=== PATIENT | male | born 1940 | race Caucasian/White ===

== ENCOUNTER 2016-12-27 05:24 | Inpatient (IN) | payer MEDICARE, MEDICAID ==
[~2016-12-27] VITALS: Ht 177.8 cm; Wt 66.0 kg
[2016-12-27] VITALS (13 sets, daily range): BP systolic 34–163; BP diastolic 20–108; PULSE 53–137; TEMP 97–97.9
[~2016-12-27 05:24] MED LIST: ATIVAN 0.50.5 MG/TAB PO; DOXYCYCLINE 10100 MG PO; NO HOME MEDICATIONS; NORCO 325 MG-51 TAB PO; PERCOCET 325 MG1 TA2 PO; RT ADVAIR HFA 1112 G IH; TENORMIN 2525 MG/TAB PO; TYLENOL 325MG325 MG PO; TYLENOL W/COD1 UDTAB PO; [UNRECOGNIZED DRUG - REMARK]
[2016-12-27] MEDS ORDERED: PLAVIX 75MG TAB75 MG PO (08:08)
[2016-12-27] MEDS ORDERED: INDOCIN50 MG PO (08:10)
[2016-12-27] MEDS ORDERED: TOPROL XL 50MG50 MG PO (08:11)
[2016-12-27] MEDS ORDERED: ZYLOPRIM 100MG100 MG PO (08:12)
[2016-12-27] MEDS ORDERED: ZESTRIL 10MG10 MG PO (08:13)
[2016-12-27] MEDS ORDERED: SENOKOT8.6 MG PO (08:13)
[2016-12-27] MEDS ORDERED: ASPIRIN 81M81 MG/TA2 PO (08:13)
[2016-12-27] MEDS ORDERED: DRAMAMINE 50MG50 MG PO (08:14)
[2016-12-27 08:23] LABS: MEAN CELL VOLUME 97 fl (80.0-100.0); MEAN CORPUSCULAR HGB CONC 33 g/dl (33.0-37.0); PLATELET COUNT 218 K/mm3 (130-400); RED BLOOD COUNT 3.48 M/mm3 (4.20-5.60); REDCELL DISTRIBUTION WIDTH-CV 15.4 % (11.5-14.5); WHITE BLOOD COUNT 8.8 K/mm3 (4.8-10.8)
[2016-12-27 08:26] LABS: HEMATOCRIT 33.9 % (42.0-52.0); HEMOGLOBIN 11.2 g/dl (13.5-18.0); MEAN CORPUSCULAR HEMOGLOBIN 32 pg (27.0-31.0)
[2016-12-27 08:29] LABS: PROTHROMBIN TIME 10.8 SECONDS (9.7-12.8)
== END 2016-12-27 10:10 | disposition short-term general hospital (02) | DRG 157 ==
LOC: ICU 05:24
PROVIDERS: Internal Medicine Cardiovascular Disease
PROC: 0BH17EZ Insertion of Endotracheal Airway into Trachea, Via Natural or Artificial Opening (ICD-10-PCS; principal; 2016-12-27)
PROC: 02HV33Z Insertion of Infusion Device into Superior Vena Cava, Percutaneous Approach (ICD-10-PCS; 2016-12-27)
PROC: 5A1935Z Respiratory Ventilation, Less than 24 Consecutive Hours (ICD-10-PCS; 2016-12-27)
DX: K13.79 Other lesions of oral mucosa (principal); R57.8 Other shock; D62 Acute posthemorrhagic anemia; I10 Essential (primary) hypertension; F17.210 Nicotine dependence, cigarettes, uncomplicated; I95.1 Orthostatic hypotension; R00.1 Bradycardia, unspecified; C04.9 Malignant neoplasm of floor of mouth, unspecified; F10.10 Alcohol abuse, uncomplicated; Y90.0 Blood alcohol level of less than 20 mg/100 ml
CPT/HCPCS: 99223-AI; C1751; J0171; J0330; J0461; J2060; J2250; J7030; J7060

== ENCOUNTER 2017-01-31 16:33 | Emergency (ER) | payer MEDICARE, MEDICAID ==
[~2017-01-31 16:33] MED LIST changes: +ASPIRIN 81M81 MG/TA2 PO; +DRAMAMINE 50MG50 MG PO; +INDOCIN50 MG PO; +PLAVIX 75MG TAB75 MG PO; +SENOKOT8.6 MG PO; +TOPROL XL 50MG50 MG PO; +ZESTRIL 10MG10 MG PO; +ZYLOPRIM 100MG100 MG PO
[2017-01-31 16:35] VITALS: TEMP 97
[2017-01-31 18:20] VITALS: BP 132/60; PULSE 73
== END 2017-01-31 18:21 | disposition home or self-care (01) ==
LOC: COL.ER 16:33
DX: Z43.0 Encounter for attention to tracheostomy (principal); Z90.49 Acquired absence of other specified parts of digestive tract; Z85.810 Personal history of malignant neoplasm of tongue; I48.91 Unspecified atrial fibrillation; F17.200 Nicotine dependence, unspecified, uncomplicated; R56.9 Unspecified convulsions; Z79.02 Long term (current) use of antithrombotics/antiplatelets

== ENCOUNTER 2017-02-23 21:04 | Emergency (ER) | payer MEDICARE, MEDICAID ==
[~2017-02-23] VITALS: Ht 180.3 cm; Wt 63.6 kg
[2017-02-23 21:04] VITALS: TEMP 97.2
[~2017-02-23 21:04] MED LIST changes: +AMIODARONE PEG; +ASPIRIN 81M81 MG/TA2 PEG; +ATIVAN 0.50.5 MG/TAB PEG; +CLEOCIN 751500 MG/10 PEG; +CORDARONE200 MG/TAB PEG; +DULCOLAX S10 MG/SUPP RC; +FOLIC ACID 11 MG/TA1 PEG; +HEPARIN 50500 U/5 ML IV; +IPRATROPIUM BROM3 M1 IH; +LEVASOLN PEG; +LEXAPRO 10MG10 MG PEG; +LIPITOR 40MG TA40 MG PEG; +MAXIPIME1 GM IV; +MELAT3MGTAB PEG; +MUCINEX 60600 MG/TA1 PEG; +NATURE'S BLEND100 M2 PEG; +NS INT FLUSH 1010 ML IV; +OXYCODONE H5 MG/5 ML PEG; +PEPCID 20MG TAB20 MG PEG; +PEPCID 20MG TAB20 MG PO; +PERIDEX (CHLOR480 ML MM; +PULMICORT R1 MG/2 ML IH; +ROCEPHIN VIA1 G/VIAL IV; +RT ALBUTER2.5 MG/0.5 IH; +SENOKOT8.6 MG PEG; -SENOKOT8.6 MG PO; +TYLEINFANT PEG; +VANCOCIN HCL1 GM IV
[2017-02-23 22:20] VITALS: BP 144/72; PULSE 81
== END 2017-02-23 22:20 | disposition home or self-care (01) ==
LOC: COL.ER 21:04
DX: J95.03 Malfunction of tracheostomy stoma (principal); Z79.82 Long term (current) use of aspirin

== ENCOUNTER → 2017-03-12 | Outpatient (REF) ==
[~2017-03-12] MED LIST changes: +LASIX 20MG TABL20 MG PO
[2017-03-12 14:52] LABS: BASO % 0.4 % (0.0-2.0); EOS # 0.1 (0.0-0.7); EOS % 0.7 % (0-4.0); GRAN # 6.6 (1.4-6.5); GRAN % 68.2 % (42.2-75.2); LYMPH # 1.8 (1.2-3.4); LYMPH % 18.2 % (20.0-51.0); MEAN CELL VOLUME 93 fl (80.0-100.0); MEAN CORPUSCULAR HGB CONC 32 g/dl (33.0-37.0); MEAN PLATELET VOLUME 10.1 fl (7.4-10.4); MONO # 1.2 (0.1-0.6); MONO % 12.2 % (1.7-9.3); PLATELET COUNT 400 K/mm3 (130-400); RED BLOOD COUNT 3.07 M/mm3 (4.20-5.60); WHITE BLOOD COUNT 9.6 K/mm3 (4.8-10.8)
[2017-03-12 14:57] LABS: ADJUSTED CALCIUM 9.5 mg/dL (8.4-10.2); ALBUMIN 2.8 gm/dL (3.5-5.0); BILIRUBIN,TOTAL 0.6 mg/dL (0.0-1.0); CALCIUM 8.5 mg/dL (8.4-10.2); CREATININE, serum 0.69 mg/dL (0.66-1.25); POTASSIUM 3.8 mmol/L (3.4-5.0); TOTAL PROTEIN 6.1 gm/dL (6.4-8.2)
[2017-03-12 15:34] LABS: HEMATOCRIT 28.4 % (42.0-52.0); HEMOGLOBIN 9.1 g/dl (13.5-18.0); MEAN CORPUSCULAR HEMOGLOBIN 30 pg (27.0-31.0)
== END ==
LOC: ZLAB.STJ 14:35
PROVIDERS: Radiology Radiation Oncology
DX: Z01.89 Encounter for other specified special examinations (principal)

== ENCOUNTER 2017-03-14 11:32 | Inpatient (IN) | payer MEDICARE, MEDICAID ==
[~2017-03-14] VITALS: Ht 182.9 cm; Wt 56.6 kg
[2017-03-14] VITALS (9 sets, daily range): BP systolic 117–148; BP diastolic 60–103; PULSE 59–112; TEMP 97.7–98.3
[~2017-03-14 11:32] MED LIST changes: -LASIX 20MG TABL20 MG PO
[2017-03-14 12:21] LABS: BASO # 0.1 (0.0-0.2); BASO % 0.3 % (0.0-2.0); GRAN # 15.1 (1.4-6.5); GRAN % 86.2 % (42.2-75.2); LYMPH # 1.2 (1.2-3.4); MEAN CELL VOLUME 90 fl (80.0-100.0); MEAN CORPUSCULAR HGB CONC 30 g/dl (33.0-37.0); MEAN PLATELET VOLUME 9.9 fl (7.4-10.4); MONO # 1.1 (0.1-0.6); MONO % 6.2 % (1.7-9.3); RED BLOOD COUNT 3.21 M/mm3 (4.20-5.60); WHITE BLOOD COUNT 17.5 K/mm3 (4.8-10.8)
[2017-03-14 12:28] LABS: HEMOGLOBIN 8.8 g/dl (13.5-18.0); MEAN CORPUSCULAR HEMOGLOBIN 27 pg (27.0-31.0); PLATELET COUNT 298 K/mm3 (130-400)
[2017-03-14] MEDS ORDERED: LASIX 20MG TABL20 MG PO (12:28)
[2017-03-14 12:29] LABS: ADJUSTED CALCIUM 9.3 mg/dL (8.4-10.2); ALANINE AMINOTRANSFERASE 40 U/L (21-72); ALBUMIN 2.9 gm/dL (3.5-5.0); ALKALINE PHOSPHATASE 95 U/L (50-136); ANION GAP 7 mmol/L (7-16); BILIRUBIN,TOTAL 0.8 mg/dL (0.0-1.0); BLOOD UREA NITROGEN 25 mg/dL (9-20); CALCIUM 8.4 mg/dL (8.4-10.2); CARBON DIOXIDE 34 mmol/L (22-30); CHLORIDE 93 mmol/L (98-107); CREATININE, serum 0.83 mg/dL (0.66-1.25); GLUCOSE 145 mg/dL (74-106); POTASSIUM 3.6 mmol/L (3.4-5.0); SODIUM 134 mmol/L (137-145); TOTAL PROTEIN 6.2 gm/dL (6.4-8.2)
[2017-03-14 12:42] LABS: TROPONIN-I < 0.012 ng/mL (0.000-0.034)
[2017-03-15 01:30] VITALS: BP 130/83; PULSE 103
[2017-03-15 02:51] VITALS: BP 131/68; PULSE 102; TEMP 97.6
[2017-03-15 07:17] LABS: MEAN CELL VOLUME 89 fl (80.0-100.0); MEAN CORPUSCULAR HGB CONC 31 g/dl (33.0-37.0); MEAN PLATELET VOLUME 10.3 fl (7.4-10.4); PLATELET COUNT 240 K/mm3 (130-400); RED BLOOD COUNT 2.81 M/mm3 (4.20-5.60); WHITE BLOOD COUNT 10.5 K/mm3 (4.8-10.8)
[2017-03-15 07:25] LABS: ADD PATHOLOGY DIFF REVIEW NO; HEMATOCRIT 24.9 % (42.0-52.0); HEMOGLOBIN 7.8 g/dl (13.5-18.0); MEAN CORPUSCULAR HEMOGLOBIN 28 pg (27.0-31.0)
[2017-03-15 07:45] VITALS: BP 125/88; PULSE 110; TEMP 97.5
[2017-03-15 07:54] LABS: CALCIUM 7.8 mg/dL (8.4-10.2); CREATININE, serum 0.62 mg/dL (0.66-1.25)
[2017-03-15 09:37] LABS: BAND 35 % (0-10); LYMPHOCYTE 10 % (20.0-51.0); NEUTROPHILS 52 % (42.0-75.2); PLATELET ESTIMATE NORMAL (NORMAL); TOTAL CELLS COUNTED 100
[2017-03-15 12:43] LABS: COLLECTION METHOD CLEAN CATCH
[2017-03-15 12:57] LABS: MUCOUS Present /lpf; PH 6 (5-8); SQUAMOUS EPITHELIAL 0-2 /hpf; URINE APPEARANCE Hazy; URINE BACTERIA Rare /hpf; URINE BILIRUBIN Negative (NEGATIVE); URINE BLOOD Negative (NEGATIVE); URINE COLOR Yellow; URINE GLUCOSE Negative (NEGATIVE); URINE KETONE Trace (NEGATIVE); URINE LEUKOCYTE ESTERASE Negative (NEGATIVE); URINE PROTEIN(semi-quant) 1+ (NEGATIVE); URINE UROBILINOGEN Negative (NEGATIVE)
[2017-03-15 13:28] VITALS: BP 131/69; PULSE 89; TEMP 98.7
[2017-03-15 14:10] LABS: ARTERIAL BLD GAS O2 SATURATION 97.7 % (92-100); ARTERIAL BLOOD GAS BASE EXCESS 5.1 (-2-2); ARTERIAL BLOOD GAS HCO3 29.6 meq/L (22-26); ARTERIAL BLOOD GAS PO2 109.7 mmHg (80-100); ARTERIAL BLOOD GAS pH 7.45 (7.35-7.45); OXYHEMOGLOBIN 96.7 %
[2017-03-15 14:11] LABS: ATS? YES
[2017-03-15 15:49] VITALS: BP 136/79; PULSE 100; TEMP 98.7
[2017-03-15 22:12] VITALS: BP 144/67; PULSE 75; TEMP 97.5
[2017-03-16] VITALS (7 sets, daily range): BP systolic 127–171; BP diastolic 68–82; PULSE 64–110; TEMP 97.5–98.5
[2017-03-16 09:27] LABS: MEAN CELL VOLUME 89 fl (80.0-100.0); MEAN CORPUSCULAR HGB CONC 31 g/dl (33.0-37.0); MEAN PLATELET VOLUME 10.8 fl (7.4-10.4); PLATELET COUNT 248 K/mm3 (130-400); WHITE BLOOD COUNT 7.8 K/mm3 (4.8-10.8)
[2017-03-16 09:32] LABS: ADD PATHOLOGY DIFF REVIEW NO; HEMATOCRIT 24.9 % (42.0-52.0); HEMOGLOBIN 7.8 g/dl (13.5-18.0); MEAN CORPUSCULAR HEMOGLOBIN 28 pg (27.0-31.0)
[2017-03-16 09:36] LABS: CALCIUM 7.9 mg/dL (8.4-10.2); CREATININE, serum 0.6 mg/dL (0.66-1.25)
[2017-03-16 10:30] LABS: BAND 33 % (0-10); EOSINOPHIL 1 % (0-4); LYMPHOCYTE 11 % (20.0-51.0); NEUTROPHILS 53 % (42.0-75.2); PLATELET ESTIMATE NORMAL (NORMAL); TOTAL CELLS COUNTED 100
[2017-03-16 13:57] LABS: ARTERIAL BLD GAS O2 SATURATION 96.3 % (92-100); ARTERIAL BLD GAS TCO2 CT 32.2; ARTERIAL BLOOD GAS BASE EXCESS 6.3 (-2-2); ARTERIAL BLOOD GAS HCO3 30.8 meq/L (22-26); ARTERIAL BLOOD GAS PHT 7.46 C (7.35-7.45); ARTERIAL BLOOD GAS PO2 87.4 mmHg (80-100); ARTERIAL BLOOD GAS PO2T 87.4 (80-100); ARTERIAL BLOOD GAS pH 7.46 (7.35-7.45); OXYHEMOGLOBIN 95.5 %
[2017-03-16 13:58] LABS: ATS? YES
[2017-03-17 03:48] VITALS: BP 173/75; PULSE 67; TEMP 98.5
[2017-03-17 06:23] LABS: MEAN CELL VOLUME 90 fl (80.0-100.0); MEAN CORPUSCULAR HGB CONC 31 g/dl (33.0-37.0); MEAN PLATELET VOLUME 10.3 fl (7.4-10.4); PLATELET COUNT 235 K/mm3 (130-400); WHITE BLOOD COUNT 7.3 K/mm3 (4.8-10.8)
[2017-03-17 06:26] LABS: HEMATOCRIT 26.2 % (42.0-52.0); MEAN CORPUSCULAR HEMOGLOBIN 28 pg (27.0-31.0)
[2017-03-17 06:27] LABS: ADD PATHOLOGY DIFF REVIEW NO
[2017-03-17 07:07] LABS: BAND 14 % (0-10); LYMPHOCYTE 20 % (20.0-51.0); METAMYELOCYTE 1 % (0-0); NEUTROPHILS 60 % (42.0-75.2); TOTAL CELLS COUNTED 100
[2017-03-17 07:08] LABS: ANISOCYTOSIS 1+; PLATELET ESTIMATE NORMAL (NORMAL)
[2017-03-17 07:09] LABS: HYPOCHROMIA 2+
[2017-03-17 08:57] VITALS: BP 163/73; PULSE 67; TEMP 98.1
[2017-03-17 12:08] VITALS: BP 148/61; PULSE 75; TEMP 97.8
[2017-03-17 16:09] VITALS: BP 139/61; PULSE 70; TEMP 98.2
[2017-03-17 19:17] VITALS: BP 149/67; PULSE 64; TEMP 98.8
[2017-03-17 23:35] VITALS: BP 148/60; PULSE 73; TEMP 98
[2017-03-18 02:41] LABS: BASO % 0.3 % (0.0-2.0); EOS # 0.2 (0.0-0.7); EOS % 1.5 % (0-4.0); GRAN # 6.9 (1.4-6.5); GRAN % 68.9 % (42.2-75.2); LYMPH # 1.7 (1.2-3.4); LYMPH % 16.9 % (20.0-51.0); MEAN CELL VOLUME 89 fl (80.0-100.0); MEAN CORPUSCULAR HGB CONC 30 g/dl (33.0-37.0); MEAN PLATELET VOLUME 9.8 fl (7.4-10.4); MONO # 1.2 (0.1-0.6); PLATELET COUNT 238 K/mm3 (130-400); RED BLOOD COUNT 3.11 M/mm3 (4.20-5.60)
[2017-03-18 02:43] LABS: HEMATOCRIT 27.8 % (42.0-52.0); HEMOGLOBIN 8.3 g/dl (13.5-18.0); MEAN CORPUSCULAR HEMOGLOBIN 27 pg (27.0-31.0)
[2017-03-18 02:51] LABS: CALCIUM 7.9 mg/dL (8.4-10.2); CREATININE, serum 0.55 mg/dL (0.66-1.25); MAGNESIUM 1.7 mg/dL (1.6-2.3); POTASSIUM 3.5 mmol/L (3.4-5.0)
[2017-03-18 05:03] VITALS: BP 148/62; PULSE 67; TEMP 98.4
[2017-03-18 08:59] VITALS: BP 119/72; PULSE 100; TEMP 98.6
[2017-03-18 12:24] VITALS: BP 134/57; PULSE 73; TEMP 97.7
[2017-03-18 16:31] VITALS: BP 177/95; PULSE 68; TEMP 98.9
[2017-03-18 20:10] VITALS: BP 133/57; PULSE 76; TEMP 100.2
[2017-03-19 00:07] VITALS: BP 144/58; PULSE 72; TEMP 97.5
[2017-03-19 01:03] LABS: HEMATOCRIT 26.2 % (42.0-52.0); HEMOGLOBIN 8.4 g/dl (13.5-18.0)
[2017-03-19 05:32] VITALS: BP 129/59; PULSE 66; TEMP 97.3
[2017-03-19 07:44] VITALS: BP 136/56; PULSE 69; TEMP 98.3
[2017-03-19 10:56] LABS: ADJUSTED CALCIUM 8.9 mg/dL (8.4-10.2); ALBUMIN 2.2 gm/dL (3.5-5.0); BILIRUBIN,TOTAL 0.3 mg/dL (0.0-1.0); CALCIUM 7.5 mg/dL (8.4-10.2); CREATININE, serum 0.58 mg/dL (0.66-1.25); PHOSPHOROUS 2.4 mg/dL (2.5-4.5); POTASSIUM 3.7 mmol/L (3.4-5.0); TOTAL PROTEIN 5.2 gm/dL (6.4-8.2)
[2017-03-19 11:03] LABS: PRE ALBUMIN 7.7 mg/dL (17.6-36.0)
[2017-03-19 12:00] VITALS: BP 148/62; PULSE 83; TEMP 97.8
[2017-03-19 15:21] VITALS: BP 136/52; PULSE 90; TEMP 98.4
[2017-03-19 21:40] VITALS: BP 134/56; PULSE 70; TEMP 98.9
[2017-03-20 00:21] VITALS: BP 128/58; PULSE 68; TEMP 97.6
[2017-03-20 03:03] VITALS: BP 121/74; PULSE 69; TEMP 98.2
[2017-03-20 07:38] LABS: BASO % 0.2 % (0.0-2.0); EOS # 0.1 (0.0-0.7); EOS % 0.6 % (0-4.0); GRAN # 9.6 (1.4-6.5); GRAN % 76.8 % (42.2-75.2); LYMPH # 1.7 (1.2-3.4); LYMPH % 13.9 % (20.0-51.0); MEAN CELL VOLUME 86 fl (80.0-100.0); MEAN CORPUSCULAR HGB CONC 31 g/dl (33.0-37.0); MEAN PLATELET VOLUME 10.2 fl (7.4-10.4); MONO # 0.9 (0.1-0.6); MONO % 7.5 % (1.7-9.3); PLATELET COUNT 209 K/mm3 (130-400); RED BLOOD COUNT 2.81 M/mm3 (4.20-5.60); WHITE BLOOD COUNT 12.5 K/mm3 (4.8-10.8)
[2017-03-20 07:45] LABS: CALCIUM 7.7 mg/dL (8.4-10.2); CREATININE, serum 0.55 mg/dL (0.66-1.25); MAGNESIUM 1.9 mg/dL (1.6-2.3); POTASSIUM 3.8 mmol/L (3.4-5.0)
[2017-03-20 07:48] LABS: HEMATOCRIT 24.2 % (42.0-52.0); HEMOGLOBIN 7.4 g/dl (13.5-18.0); MEAN CORPUSCULAR HEMOGLOBIN 26 pg (27.0-31.0)
[2017-03-20 07:50] LABS: ADD PATHOLOGY DIFF REVIEW NO
[2017-03-20 08:00] VITALS: BP 120/51; PULSE 65; TEMP 97.9
[2017-03-20 09:45] LABS: BAND 30 % (0-10); LYMPHOCYTE 18 % (20.0-51.0); NEUTROPHILS 52 % (42.0-75.2); TOTAL CELLS COUNTED 100
[2017-03-20 09:46] LABS: ANISOCYTOSIS 1+; PLATELET ESTIMATE NORMAL (NORMAL)
[2017-03-20 09:47] LABS: HYPOCHROMIA 1+
[2017-03-20 11:31] VITALS: BP 142/52; PULSE 72; TEMP 97.7
[2017-03-20 15:35] VITALS: BP 135/53; PULSE 69; TEMP 97.8
[2017-03-20 19:43] VITALS: BP 149/60; PULSE 54; TEMP 97.4
[2017-03-21 02:07] VITALS: BP 148/92; PULSE 72; TEMP 96.9
[2017-03-21 07:07] LABS: CALCIUM 7.7 mg/dL (8.4-10.2); CREATININE, serum 0.53 mg/dL (0.66-1.25); POTASSIUM 3.7 mmol/L (3.4-5.0)
[2017-03-21 07:13] LABS: MEAN CELL VOLUME 86 fl (80.0-100.0); MEAN CORPUSCULAR HGB CONC 32 g/dl (33.0-37.0); MEAN PLATELET VOLUME 10.6 fl (7.4-10.4); PLATELET COUNT 253 K/mm3 (130-400); RED BLOOD COUNT 2.73 M/mm3 (4.20-5.60); WHITE BLOOD COUNT 15.5 K/mm3 (4.8-10.8)
[2017-03-21 07:15] LABS: ADD PATHOLOGY DIFF REVIEW NO; HEMATOCRIT 23.5 % (42.0-52.0); HEMOGLOBIN 7.4 g/dl (13.5-18.0); MEAN CORPUSCULAR HEMOGLOBIN 27 pg (27.0-31.0)
[2017-03-21 07:49] LABS: BAND 30 % (0-10); EOSINOPHIL 1 % (0-4); LYMPHOCYTE 7 % (20.0-51.0); NEUTROPHILS 60 % (42.0-75.2); TOTAL CELLS COUNTED 100
[2017-03-21 07:50] LABS: HYPOCHROMIA 2+; PLATELET ESTIMATE NORMAL (NORMAL)
[2017-03-21 07:58] LABS: AMYLASE 569 U/L (30-110); LIPASE 1771 U/L (23-300)
[2017-03-21 08:00] VITALS: BP 143/50; PULSE 72; TEMP 97.5
[2017-03-21 11:28] VITALS: BP 126/56; PULSE 65; TEMP 97.5
[2017-03-21 15:39] VITALS: BP 142/58; PULSE 86; TEMP 97.5
[2017-03-21 20:19] VITALS: BP 150/54; PULSE 79; TEMP 99.1
[2017-03-21 23:39] VITALS: BP 136/57; PULSE 68; TEMP 97.7
[2017-03-22] VITALS (13 sets, daily range): BP systolic 119–144; BP diastolic 47–68; PULSE 56–73; TEMP 96.9–97.8
[2017-03-22 07:24] LABS: MEAN CELL VOLUME 86 fl (80.0-100.0); MEAN CORPUSCULAR HGB CONC 31 g/dl (33.0-37.0); MEAN PLATELET VOLUME 10.4 fl (7.4-10.4); PLATELET COUNT 236 K/mm3 (130-400); RED BLOOD COUNT 2.29 M/mm3 (4.20-5.60); WHITE BLOOD COUNT 9.2 K/mm3 (4.8-10.8)
[2017-03-22 07:25] LABS: HEMATOCRIT 19.6 % (42.0-52.0); HEMOGLOBIN 6.1 g/dl (13.5-18.0); MEAN CORPUSCULAR HEMOGLOBIN 27 pg (27.0-31.0)
[2017-03-22 07:35] LABS: CALCIUM 7.6 mg/dL (8.4-10.2); CREATININE, serum 0.55 mg/dL (0.66-1.25); POTASSIUM 3.3 mmol/L (3.4-5.0)
[2017-03-22 10:34] LABS: ANISOCYTOSIS 1+; BAND 47 % (0-10); HYPOCHROMIA 1+; LYMPHOCYTE 17 % (20.0-51.0); NEUTROPHILS 36 % (42.0-75.2); OVALOCYTES 1+; PLATELET ESTIMATE NORMAL (NORMAL); TOTAL CELLS COUNTED 100
[2017-03-22 10:35] LABS: ADD PATHOLOGY DIFF REVIEW YES
[2017-03-23 00:43] VITALS: BP 130/51; PULSE 65; TEMP 98
[2017-03-23 03:45] VITALS: BP 132/51; PULSE 67; TEMP 98
[2017-03-23 08:19] VITALS: BP 146/56; PULSE 65; TEMP 97.9
[2017-03-23 08:59] LABS: BASO % 0.2 % (0.0-2.0); EOS # 0.1 (0.0-0.7); EOS % 1.3 % (0-4.0); GRAN # 6.9 (1.4-6.5); GRAN % 68.5 % (42.2-75.2); LYMPH # 1.8 (1.2-3.4); LYMPH % 17.7 % (20.0-51.0); MEAN CELL VOLUME 86 fl (80.0-100.0); MEAN CORPUSCULAR HGB CONC 32 g/dl (33.0-37.0); MEAN PLATELET VOLUME 10.3 fl (7.4-10.4); MONO % 9.4 % (1.7-9.3); PLATELET COUNT 258 K/mm3 (130-400); RED BLOOD COUNT 3.07 M/mm3 (4.20-5.60); WHITE BLOOD COUNT 10.1 K/mm3 (4.8-10.8)
[2017-03-23 09:00] LABS: HEMATOCRIT 26.5 % (42.0-52.0); HEMOGLOBIN 8.5 g/dl (13.5-18.0); MEAN CORPUSCULAR HEMOGLOBIN 28 pg (27.0-31.0)
[2017-03-23 09:02] LABS: ADD PATHOLOGY DIFF REVIEW NO
[2017-03-23 09:11] LABS: CALCIUM 7.8 mg/dL (8.4-10.2); CREATININE, serum 0.6 mg/dL (0.66-1.25); POTASSIUM 3.7 mmol/L (3.4-5.0)
[2017-03-23 10:37] LABS: BAND 11 % (0-10); BASOPHIL 1 % (0-2); LYMPHOCYTE 21 % (20.0-51.0); NEUTROPHILS 61 % (42.0-75.2); PLATELET ESTIMATE NORMAL (NORMAL); TOTAL CELLS COUNTED 100
[2017-03-23 10:38] LABS: ANISOCYTOSIS 1+
[2017-03-23 10:40] LABS: HYPOCHROMIA 1+
[2017-03-23 12:01] VITALS: BP 153/60; PULSE 68; TEMP 97.7
[2017-03-23 16:38] VITALS: BP 141/71; PULSE 67; TEMP 97.5
[2017-03-23] MEDS ORDERED: SEROQUEL50 MG PO (17:46)
[2017-03-23] MEDS ORDERED: LIDODERM 5% PATC1 EA TP (17:48)
[2017-03-23] MEDS ORDERED: ROCEPHIN 2GM VIAL21 IJ (17:49)
[2017-03-26 07:45] LABS: PATHOLOGY DIFF REVIEW OK +
== END 2017-03-23 17:45 | disposition short-term general hospital (02) | DRG 871 ==
LOC: COL.ER 11:32 → MEDICAL 15:18
PROVIDERS: Emergency Medicine; Internal Medicine; Internal Medicine Critical Care Medicine; Nurse Practitioner Family; Physician Assistant
PROC: 0W9H30Z Drainage of Retroperitoneum with Drainage Device, Percutaneous Approach (ICD-10-PCS; principal; 2017-03-14)
DX: A41.51 Sepsis due to Escherichia coli [E. coli] (principal); K68.19 Other retroperitoneal abscess; J96.21 Acute and chronic respiratory failure with hypoxia; E43 Unspecified severe protein-calorie malnutrition; E87.1 Hypo-osmolality and hyponatremia; Z68.1 Body mass index [BMI] 19.9 or less, adult; N36.0 Urethral fistula; Z85.818 Personal history of malignant neoplasm of other sites of lip, oral cavity, and pharynx; I10 Essential (primary) hypertension; I73.9 Peripheral vascular disease, unspecified; Z95.820 Peripheral vascular angioplasty status with implants and grafts; Z87.891 Personal history of nicotine dependence; D64.9 Anemia, unspecified; Z93.0 Tracheostomy status; B96.20 Unspecified Escherichia coli [E. coli] as the cause of diseases classified elsewhere; L89.152 Pressure ulcer of sacral region, stage 2; I48.91 Unspecified atrial fibrillation; J20.9 Acute bronchitis, unspecified; B96.89 Other specified bacterial agents as the cause of diseases classified elsewhere
CPT/HCPCS: 99222-AI; 99232-AI; 99233-AI; 99239; C1729; C1751; J0692; J0696; J1170; J1644; J1650; J2185; J2916; J3370; J3475; J7030; J7040; J7050; P9016; Q9967

== ENCOUNTER 2017-04-06 04:23 | Emergency (ER) | payer MEDICARE, MEDICAID ==
[~2017-04-06] VITALS: Ht 172.7 cm; Wt 61.4 kg
[~2017-04-06 04:23] MED LIST changes: +LASIX 20MG TABL20 MG PO; +LIDODERM 5% PATC1 EA TP; +ROCEPHIN 2GM VIAL21 IJ; +SEROQUEL50 MG PO
[2017-04-06 04:27] VITALS: TEMP 98.1
[2017-04-06] MEDS ORDERED: PULMICORT0.5 MG/2 M IH (04:47)
[2017-04-06] MEDS ORDERED: LEXAPRO 10MG10 MG PEG (04:59)
[2017-04-06] MEDS ORDERED: ATROVENT I0.2 MG/1 M IH (05:03)
[2017-04-06] MEDS ORDERED: SENOKOT S 50 MG1 TAB PEG (05:04)
[2017-04-06] MEDS ORDERED: [UNRECOGNIZED DRUG - CODE] PO (05:12)
[2017-04-06 05:30] LABS: BASO # 0.1 (0.0-0.2); BASO % 0.4 % (0.0-2.0); EOS # 0.1 (0.0-0.7); EOS % 0.3 % (0-4.0); GRAN # 13.1 (1.4-6.5); GRAN % 76.1 % (42.2-75.2); HEMATOCRIT 37.3 % (42.0-52.0); LYMPH # 1.8 (1.2-3.4); LYMPH % 10.6 % (20.0-51.0); MEAN CELL VOLUME 91 fl (80.0-100.0); MEAN CORPUSCULAR HEMOGLOBIN 29 pg (27.0-31.0); MEAN CORPUSCULAR HGB CONC 32 g/dl (33.0-37.0); MEAN PLATELET VOLUME 10.1 fl (7.4-10.4); MONO # 2.1 (0.1-0.6); MONO % 12.1 % (1.7-9.3); PLATELET COUNT 323 K/mm3 (130-400); RED BLOOD COUNT 4.11 M/mm3 (4.20-5.60); WHITE BLOOD COUNT 17.3 K/mm3 (4.8-10.8)
[2017-04-06 05:36] LABS: HEMOGLOBIN 11.8 g/dl (13.5-18.0)
[2017-04-06 05:47] LABS: ADJUSTED CALCIUM 9.5 mg/dL (8.4-10.2); ALBUMIN 3.3 gm/dL (3.5-5.0); CALCIUM 8.9 mg/dL (8.4-10.2); CREATININE, serum 0.54 mg/dL (0.66-1.25); TOTAL PROTEIN 7.2 gm/dL (6.4-8.2)
[2017-04-06] MEDS ORDERED: CEFDINIR250 MG/5 M PO (06:18)
[2017-04-06 06:27] VITALS: BP 157/74; PULSE 70
== END 2017-04-06 07:14 ==
LOC: COL.ER 04:23
PROVIDERS: Emergency Medicine
DX: Z43.0 Encounter for attention to tracheostomy (principal); J20.9 Acute bronchitis, unspecified; I48.91 Unspecified atrial fibrillation; I10 Essential (primary) hypertension; E78.5 Hyperlipidemia, unspecified; Z87.891 Personal history of nicotine dependence; Z85.818 Personal history of malignant neoplasm of other sites of lip, oral cavity, and pharynx; Z79.82 Long term (current) use of aspirin

== ENCOUNTER 2017-04-07 04:02 | Emergency (ER) | payer MEDICARE, MEDICAID ==
[~2017-04-07] VITALS: Ht 177.8 cm; Wt 59.1 kg
[~2017-04-07 04:02] MED LIST changes: +ATROVENT I0.2 MG/1 M IH; +CEFDINIR250 MG/5 M PO; +PULMICORT0.5 MG/2 M IH; +SENOKOT S 50 MG1 TAB PEG; +[UNRECOGNIZED DRUG - CODE] PO
[2017-04-07 04:05] VITALS: BP 125/83; TEMP 97
[2017-04-07 04:44] VITALS: PULSE 82
== END 2017-04-07 04:42 ==
LOC: COL.ER 04:02
DX: J95.03 Malfunction of tracheostomy stoma (principal); I48.0 Paroxysmal atrial fibrillation; Z85.819 Personal history of malignant neoplasm of unspecified site of lip, oral cavity, and pharynx; Z87.01 Personal history of pneumonia (recurrent); Z87.891 Personal history of nicotine dependence; Z79.82 Long term (current) use of aspirin; Z93.0 Tracheostomy status; Z98.890 Other specified postprocedural states

== ENCOUNTER 2017-04-12 05:29 | Day surgery (SDC) | payer MEDICARE ==
[~2017-04-12] VITALS: Ht 170.2 cm; Wt 53.0 kg
[2017-04-12] MEDS ORDERED: LORAINT PEG (06:49)
[2017-04-12] MEDS ORDERED: MORPHINE SULF2 MG/M1 PEG (06:52)
[2017-04-12 08:35] VITALS: BP 115/86; PULSE 71; TEMP 98.9
[2017-04-12 08:36] VITALS: BP 115/86; PULSE 71; TEMP 98.9
[2017-04-12] MEDS ORDERED: DONNATAL PO (10:37)
[2017-04-12] MEDS ORDERED: CORDARONE NG (10:45)
[2017-04-12] MEDS ORDERED: PERIDEX (CHLOR480 ML MM (10:48)
[2017-04-12 13:00] VITALS: BP 125/92; PULSE 62; TEMP 97.8
[2017-04-12 13:15] VITALS: BP 129/97; PULSE 64; TEMP 98
[2017-04-12 13:30] VITALS: BP 128/61; PULSE 81
== END 2017-04-12 15:19 ==
LOC: COL.ER 05:29 → SURG 06:16 → SDCO 06:16 → SURG 15:19 → SDCO 15:19
DX: J95.09 Other tracheostomy complication (principal); I10 Essential (primary) hypertension; E78.5 Hyperlipidemia, unspecified; F17.200 Nicotine dependence, unspecified, uncomplicated; M10.9 Gout, unspecified; C06.9 Malignant neoplasm of mouth, unspecified; Z90.49 Acquired absence of other specified parts of digestive tract; Z79.02 Long term (current) use of antithrombotics/antiplatelets; Z79.82 Long term (current) use of aspirin; Z88.0 Allergy status to penicillin; Z93.1 Gastrostomy status; F10.11 Alcohol abuse, in remission; K68.19 Other retroperitoneal abscess; L89.302 Pressure ulcer of unspecified buttock, stage 2
CPT/HCPCS: A7520; J2250; J2704

== ENCOUNTER → 2017-05-02 | Outpatient (REF) ==
[~2017-05-02] MED LIST changes: +CORDARONE NG; +DONNATAL PO; +LORAINT PEG; +MORPHINE SULF2 MG/M1 PEG
== END ==
LOC: ZAIV 04-24 06:00
DX: Z09 Encounter for follow-up examination after completed treatment for conditions other than malignant neoplasm (principal)